=== PATIENT | male | born 1935 | race Caucasian/White ===

== ENCOUNTER → 2017-11-25 | Outpatient (CLI) | payer OTHER ==
--- NOTE | 2017-11-25 12:24 | DIAGNOSTIC IMAGING REPORT ---
VIDEO SWALLOW HISTORY: Aspiration. Stroke. TECHNIQUE: Video fluoroscopic evaluation of swallowing was performed in the AP and lateral projections by the speech pathology staff. The patient is fed nectar-thick and thin liquid barium, a barium coated wafer, and barium pudding. FLUOROSCOPY TIME: 4 minutes. NUMBER OF FLUOROSCOPY IMAGES: 0 COMPARISON STUDY: None. FINDINGS: With swallowing thin liquid barium via teaspoon there was aspiration with cough. When performing a single swallow from a cup, there is aspiration with cough. When swallowing with the chin tuck maneuver, there was no aspiration. There is no aspiration when swallowing nectar thick liquids putting or cracker with paste. Note is made of premature vallecular leakage. There is an 8 initiation of the swallow., IMPRESSION: 1. Aspiration of thin liquids. 2. Please see the speech pathologist report for detailed findings and recommendations. Electronically signed by: Jv Hurt M.D. 11/25/2017 12:23 PM Dictated Date/Time: 11/25/2017 12:21 PM
--- NOTE | 2017-11-25 15:09 | SWALLOWING EVALUATION ---
REFERRING SPEECH PATHOLOGIST: n/a HISTORY: This 82 year-old male, currently an inpatient at [facility] ([facility]) was referred for a VFSS at [facility] in order to rule out aspiration and identify safe consistencies for optimal oral intake. The patient had a CVA and fall and is at [facility] for comprehensive post-stroke rehabilitation. 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 Prior to the CVA he was living home independently. Currently the patient's diet level is unknown, but the patient reports he is drinking thickened liquids. PROCEDURE: The patient was seen in the Radiology Department of [facility] for the VFSS. Cursory examination of the oral cavity revealed adequate dentition. Movement of the articulators was impaired as evidenced by limited mandibular strength and ROM, and, limited lingual strength and ROM. The patient was seated upright in a wheelchair and was viewed in both the Anterior-Posterior (A-P) and Lateral planes. Volitional phonation exercises completed in the A-P plane revealed bilateral vocal fold movement with weak vocal intensity. In the lateral plane, the patient was given the following boluses: 1 tsp. thin liquid barium x 2, single swallow thin liquid barium self-presented from a cup, single swallows of thin liquid barium self-presented from a cup using CHIN TUCK posture, 1 tsp. nectar-thick liquid barium, single swallow nectar-thick liquid barium self-presented from a cup, 1 tsp. barium pudding, and 1 club cracker with barium pudding and a self-presented cup sip of nectar-thick liquids as a wash. The patient was then repositioned into the A-P plane and given 1 tsp. barium pudding. RESULTS: Oral Stage: Interlabial bolus loss that did not extend beyond christiana border. Bolus escape to the floor of mouth during attempts at oral bolus hold of thin liquid. Disorganized and prolonged mastication with solid pieces of bolus left unchewed after initial swallow. Majority of solid bolus remained intraorally after first swallow. Cleared with 2 more dry swallows and a liquid wash. Pharyngeal swallow initiation DELAYED. It did not start until the bolus head was in the pyriform sinuses. Moderate oral-stage dysphagia. Pharyngeal Stage: No bolus between soft palate and pharyngeal wall. Laryngeal elevation and anterior hyoid excursion were incomplete. Epiglottic inversion was incomplete. Laryngeal vestibular closure was incomplete. Pharyngeal stripping wave was present. Pseudodiverticulae evident in AP plane when assessing pharyngeal contraction. Partial distention and duration of PES opening with minimal obstruction of bolus flow. No visible tongue base retraction. Majority of solid food bolus left in pharynx after initial swallow attempt. Required more than one swallow and liquid wash to clear. There was PENETRATION AND ASPIRATION OF THIN LIQUIDS VIA TSP. AND CUP. There was cough response to all aspiration. A chin tuck posture was effective in eliminating aspiration; however, the clinician was using tactile cuing to keep the patient's chin to chest during the trials. The patient did not do it independently. [place]-thick liquid wash was effective in clearing residuals from the pharynx. Moderate pharyngeal dysphagia. Esophageal Stage: No apparent impedance of a pudding bolus transiting the esophagus, but view was suboptimal due to presence of lap tray attachment to w/c. SUMMARY/RECOMMENDATIONS: This patient presents with moderate oral-pharyngeal dysphagia. The following is recommended: 1. Moist mechanical soft diet; Thin liquids using CHIN TUCK -or- [place]-thick liquids 2. Aspiration precautions: fully alert and upright for all meals, use CHIN TUCK posture for swallowing, no straws, stringent oral hygiene, alternate solids and liquids, monitor for oral pocketing 3. Consideration of f/u with [facility] services for dysphagia and dysarthria management. A summary of the results and recommendations was recorded on a Consultation Record and returned with the patient immediately following the study. It should be noted that the patient had been diagnosed Influenza A (+) at the time of this study and was not wearing a mask. Started Tamiflu 11/23/17 and dose will finish 11/28/17. Thank you for referral of this patient. Please contact me at if any additional information is needed.
== END | disposition home or self-care (01) ==
LOC: C.RAD 10:57
PROVIDERS: ATTEND Nurse Practitioner
DX: I63.9 Cerebral infarction, unspecified (principal); M62.82 Rhabdomyolysis; R13.13 Dysphagia, pharyngeal phase